=== PATIENT | male | born 1970 | race American Indian/Alaskan Native ===

== ENCOUNTER 2017-01-17 11:18 | Emergency (ER) | payer BC ==
[2017-01-17] MEDS ORDERED: TORADOL IM ONE (14:18)
--- NOTE | 2017-01-17 15:21 | Emergency Department Report ---
ED Back Pain/Injury HPI - General Chief Complaint: Back Pain/Injury Stated Complaint: LOWER BACK PAIN,LEFTLEG NUMBNESS Time Seen by Provider: 01/17/17 13:03 Source: patient Limitations: No Limitations - History of Present Illness Initial Comments: Patient is a 46-year-old male who presents due to left lower back pain that radiates to his left leg started this morning, patient is a history of having sharp left lower back pain after getting out of the shower. Patient denies any falls of back injuries. Patient states that he stands all day at work. Patient has any dysuria, hematuria or frequency. Patient denies any urinary or bowel incontinence. Patient denies any numbness but admits of tingling to the left ear. MD Complaint: back pain -: This morning Similar Symptoms Previously: No Place: home Radiation: left leg Severity: moderate, severe Severity scale (0 -10): 6 Quality: aching Consistency: intermittent Improves With: none Worsens With: walking Context: unknown Associated Symptoms: denies other symptoms - Related Data Previous Rx's Medication Instructions Recorded Last Taken Type Ibuprofen [Motrin 800 MG tab] 800 mg PO Q8HR PRN #30 tablet 01/17/17 Unknown Rx Methocarbamol [Robaxin TAB] 750 mg PO BID #15 tab 01/17/17 Unknown Rx Prednisone [predniSONE 10 mg 10 mg PO .TAPER #1 tab.ds.pk 01/17/17 Unknown Rx (6-Day Pack, 21 Tabs)] traMADol [Ultram 50 MG tab] 50 mg PO Q6HR PRN #15 tablet 01/17/17 Unknown Rx Allergies Allergy/AdvReac Type Severity Reaction Status Date / Time No Known Allergies Allergy Unverified 01/17/17 12:26 ED Review of Systems ROS: Stated complaint: LOWER BACK PAIN,LEFTLEG NUMBNESS Other details as noted in HPI Comment: All other systems reviewed and negative Constitutional: no symptoms reported. denies: chills, diaphoresis, fever, malaise, weakness Eyes: denies: eye pain, eye discharge, vision change ENT: denies: ear pain, throat pain, dental pain, hearing loss, epistaxis, congestion Respiratory: no symptoms reported Cardiovascular: denies: chest pain, palpitations, dyspnea on exertion, orthopnea , edema, syncope, paroxysmal nocturnal dyspnea Endocrine: no symptoms reported. denies: excessive sweating, flushing, intolerance to cold, intolerance to heat Gastrointestinal: denies: abdominal pain, nausea, vomiting Musculoskeletal: back pain, other (left leg pain). denies: joint swelling, arthralgia Skin: denies: rash, lesions Neurological: denies: headache, weakness, numbness Psychiatric: denies: anxiety ED Past Medical Hx - Past Medical History Previous Medical History?: No - Surgical History Past Surgical History?: No - Social History Smoking Status: Never Smoker Substance Use Type: Alcohol - Medications Home Medications: Home Medications Medication Instructions Recorded Confirmed Last Taken Type Ibuprofen [Motrin 800 MG tab] 800 mg PO Q8HR PRN #30 tablet 01/17/17 Unknown Rx Methocarbamol [Robaxin TAB] 750 mg PO BID #15 tab 01/17/17 Unknown Rx Prednisone [predniSONE 10 mg 10 mg PO .TAPER #1 tab.ds.pk 01/17/17 Unknown Rx (6-Day Pack, 21 Tabs)] traMADol [Ultram 50 MG tab] 50 mg PO Q6HR PRN #15 tablet 01/17/17 Unknown Rx ED Physical Exam - General Limitations: No Limitations General appearance: alert, in no apparent distress - Head Head exam: Present: atraumatic, normocephalic, normal inspection - Eye Eye exam: Present: normal appearance, PERRL, EOMI - ENT ENT exam: Present: normal exam, normal orophraynx, mucous membranes moist - Neck Neck exam: Present: normal inspection - Respiratory Respiratory exam: Present: normal lung sounds bilaterally. Absent: respiratory distress, wheezes, rales, rhonchi, stridor - Cardiovascular Cardiovascular Exam: Present: regular rate, normal rhythm, normal heart sounds - Expanded Lower Extremity Exam Left Hip exam: Present: full ROM. Absent: tenderness, swelling, abrasion, laceration , ecchymosis, deformity, crepidus, dislocation, erythema, external rotation Upper Leg exam: Present: normal inspection, full ROM. Absent: tenderness, swelling, abrasion, laceration, ecchymosis, deformity, crepidus, dislocation, erythema Knee exam: Present: normal inspection, full ROM. Absent: tenderness Lower Leg exam: Present: normal inspection, full ROM. Absent: tenderness Ankle exam: Present: normal inspection, full ROM. Absent: tenderness Foot/Toe exam: Present: normal inspection, full ROM. Absent: tenderness Neuro vascular tendon exam: Present: no vascular compromise. Absent: motor deficit, sensory deficit Gait: Positive: observed and normal - Neurological Exam Neurological exam: Present: alert, oriented X3, normal gait (patient had no neurological focal deficits, sensory function was intact in his upper and lower extremity. motor strength was 5/5 in the left and right lower an) - Psychiatric Psychiatric exam: Present: normal affect, normal mood - Skin Skin exam: Present: warm, dry, intact ED Course Vital Signs 01/17/17 01/17/17 12:26 14:28 Temperature 98.5 F Pulse Rate 61 Respiratory 18 Rate Blood Pressure 170/114 O2 Sat by Pulse 100 Oximetry ED Medical Decision Making - Medical Decision Making She was in no acute distress, patient had no neurological focal deficits, sensory function was intact in his left lower extremity, motor function was 5/5. X-ray of the lumbar spine showed no acute osseous abnormalities. Patient will be discharge with Robaxin for muscle spasms, ibuprofen for pain, tramadol for pain and prednisone tapering dose for inflammation. Patient was given information on follow-up with an medical transport specialist for any complications. Patient was told to return to the ER if he started having numbness, urinary or bowel incontinence. - Differential Diagnosis sciatica, lumbar strain, muscle spasm Critical care attestation.: If time is entered above; I have spent that time in minutes in the direct care of this critically ill patient, excluding procedure time. ED Disposition Clinical Impression: Muscle spasm Lumbar strain Qualifiers: Encounter type: initial encounter Qualified Code(s): S39.012A - Strain of muscle, fascia and tendon of lower back, initial encounter Disposition: DISCHARGED TO HOME OR SELFCARE Is pt being admited?: No Does the pt Need Aspirin: No Condition: Good Instructions: Muscle Strain (ED), Sciatica (ED) Additional Instructions: Take Robaxin 500 mg as needed every 8 hours, take ibuprofen 800 mg every 8 hours as needed for pain, take tramadol 1 tablet every 6 hours as needed for severe pain. Take prednisone tapering dose as prescribed. Follow-up with the provider orthopedic specialists for any complications. Return to the ER for any numbness, urinary or bowel incontinence. Prescriptions: Ibuprofen [Motrin 800 MG tab] 800 mg PO Q8HR PRN #30 tablet PRN Reason: Pain Methocarbamol [Robaxin TAB] 750 mg PO BID #15 tab Prednisone [predniSONE 10 mg (6-Day Pack, 21 Tabs)] 10 mg PO .TAPER #1 tab.ds.pk traMADol [Ultram 50 MG tab] 50 mg PO Q6HR PRN #15 tablet PRN Reason: Pain Referrals: PRIMARY CARE, [Primary Care Provider] - 3-5 Days TONY CARRENO MD [Staff Physician] - 3-5 Days Time of Disposition: 15:32
--- NOTE | 2017-01-17 15:28 | XRay Report ---
FINAL REPORT EXAM: XR SPINE LUMBOSACRAL 2-3V HISTORY: low back pain TECHNIQUE: AP, lateral and lumbosacral spot views of the lumbar spine. PRIORS: None. FINDINGS: There are five lumbar type vertebral bodies. Normal alignment. No compression fracture. The disc spaces are maintained. The paravertebral soft tissues are normal. Mild facet arthropathy of the lower lumbar spine is seen. IMPRESSION: Mild facet arthropathy of the lower lumbar spine.
[2017-01-17 15:52] VITALS: BP 173/100
== END 2017-01-17 15:52 | disposition home or self-care (01) ==
LOC: ED 11:18
DX: S39.012A Strain of muscle, fascia and tendon of lower back, initial encounter (principal); M62.830 Muscle spasm of back; X50.1XXA Overexertion from prolonged static or awkward postures, initial encounter; Y93.89 Activity, other specified; Y99.8 Other external cause status; Y92.89 Other specified places as the place of occurrence of the external cause
CPT/HCPCS: 72100; 96372; 99283; J1885

== ENCOUNTER 2017-02-19 12:15 | Emergency (ER) | payer BC ==
[2017-02-19 13:47] LABS: Basophils % (Auto) 0.7 % (0.0-1.8); Eosinophils % (Auto) 1.9 % (0.0-4.3); Hematocrit 47.6 % (35.5-45.6); Hemoglobin 15.4 gm/dl (11.8-15.2); Mean Corpuscular HGB Conc 32 % (32-34); Mean Corpuscular Hemoglobin 27 pg (28-32); Mean Corpuscular Volume 85 fl (84-94); Platelet Count 434 K/mm3 (140-440); Red Blood Count 5.61 M/mm3 (3.65-5.03); Red Cell Distribution Width 13.9 % (13.2-15.2); White Blood Count 8.9 K/mm3 (4.5-11.0)
[2017-02-19 13:49] LABS: Anion Gap 20 mmol/L; BUN/Creatinine Ratio 15.45; Blood Urea Nitrogen 17 mg/dL (9-20); Calcium 9.4 mg/dL (8.4-10.2); Carbon Dioxide 24 mmol/L (22-30); Chloride 100.5 mmol/L (98-107); Glucose 110 mg/dL (75-100); Potassium 4.1 mmol/L (3.6-5.0); Sodium 140 mmol/L (137-145)
[2017-02-19] MEDS ORDERED: CEPHULAC PO ONE (18:30)
--- NOTE | 2017-02-19 18:41 | Emergency Department Report ---
HPI - General Chief Complaint: Abdominal Pain Time Seen by Provider: 02/19/17 18:19 - HPI HPI: Room 17 The patient is a 46-year-old male presenting with a chief complaint of hypertension and constipation. The patient states several weeks ago is instructed by his primary physician come to the ED because blood pressure was elevated (patient does not remember the values). The patient states one reason he came to the ED today was to have his blood pressure evaluated and managed. Patient has a history of a recent back injury has been placed on Ultram and Mobic. The patient states he believes this is less to constipation. Patient states she has not had a bowel movement for the past 6 days. Patient denies nausea or vomiting. Patient denies any history of fever. Patient complains of fullness in the left abdomen Location: [see above] Duration: [see above] Quality: Pressure Severity: Moderate Modifying factors: Magnesium citrate did not help Context: [see above] Mode of transportation: Unknown ED Past Medical Hx - Past Medical History Hx Hypertension: Yes (recent diagnosis) Hx Asthma: Yes Additional medical history: BACK INJURY - Surgical History Past Surgical History?: No - Family History Family history: no significant - Social History Smoking Status: Former Smoker Substance Use Type: Alcohol (occasional) - Medications Home Medications: Home Medications Medication Instructions Recorded Confirmed Last Taken Type traMADol [Ultram 50 MG tab] 50 mg PO Q6HR PRN #15 tablet 01/17/17 02/19/1702/18 18:00 Rx Meloxicam [Mobic] 7.5 mg PO BID 02/19/17 02/19/17 02/18/17 08:00 History Docusate Sodium [Colace] 100 mg PO BID #60 capsule 02/20/17 Unknown Rx Lactulose [Cephulac] 20 gm PO QDAY #90 ml 02/20/17 Unknown Rx ED Review of Systems ROS: Stated complaint: BOWEL BLOCKAGE/BP Other details as noted in HPI Comment: All other systems reviewed and negative Constitutional: denies: chills, fever Eyes: denies: eye pain, eye discharge, vision change ENT: denies: ear pain, throat pain Respiratory: denies: cough, shortness of breath, wheezing Cardiovascular: denies: chest pain, palpitations Endocrine: no symptoms reported Gastrointestinal: abdominal pain, constipation. denies: nausea, vomiting Genitourinary: denies: urgency, dysuria Musculoskeletal: myalgia Skin: denies: rash, lesions Neurological: denies: headache, weakness, paresthesias Psychiatric: denies: anxiety, depression Hematological/Lymphatic: denies: easy bleeding, easy bruising Physical Exam - Physical Exam Vital Signs: Vital Signs 02/19/17 13:00 Temperature 98.5 F Pulse Rate 54 L Respiratory 19 Rate Blood Pressure 168/118 O2 Sat by Pulse 99 Oximetry Physical Exam: GENERAL: The patient is well-developed well-nourished male lying on stretcher not appearing to be in acute distress. [] HEENT: Normocephalic. Atraumatic. Extraocular motions are intact. Patient has moist mucous membranes. NECK: Supple. Trachea midline CHEST/LUNGS: Clear to auscultation. There is no respiratory distress noted. HEART/CARDIOVASCULAR: Regular. There is no tachycardia. There is no gallop rub or murmur. ABDOMEN: Abdomen is soft, mild tenderness to palpation in the left lower quadrant. Mild discomfort to palpation in the left upper quadrant. Patient has normal bowel sounds. There is no abdominal distention. SKIN: There is no rash. There is no edema. There is no diaphoresis.and gait. MUSCULOSKELETAL: There is no evidence of acute injury. ED Course Vital Signs 02/19/17 13:00 Temperature 98.5 F Pulse Rate 54 L Respiratory 19 Rate Blood Pressure 168/118 O2 Sat by Pulse 99 Oximetry - Reevaluation(s) Reevaluation #1: 02/20/17 01:01 Patient has had a large bowel movement and feels improved ED Medical Decision Making - Lab Data Result diagrams: 02/19/17 13:20 02/19/17 13:20 Laboratory Tests 02/19/17 02/19/17 13:20 13:20 WBC 8.9 RBC 5.61 H Hgb 15.4 H Hct 47.6 H MCV 85 MCH 27 L MCHC 32 RDW 13.9 Plt Count 434 Lymph % (Auto) 19.8 [place] % (Auto) 7.6 H Eos % (Auto) 1.9 Baso % (Auto) 0.7 Lymph # 1.8 [place] # 0.7 Eos # 0.2 Baso # 0.1 Seg Neutrophils % 70.0 Seg Neutrophils # 6.2 Sodium 140 Potassium 4.1 Chloride 100.5 Carbon Dioxide 24 Anion Gap 20 BUN 17 Creatinine 1.1 Estimated GFR > 60 BUN/Creatinine Ratio 15.45 Glucose 110 H Calcium 9.4 - Differential Diagnosis opiate-induced constipation, diverticulitis, colonic mass, hypertension Critical care attestation.: If time is entered above; I have spent that time in minutes in the direct care of this critically ill patient, excluding procedure time. ED Disposition Clinical Impression: Abdominal pain, Constipation Disposition: DISCHARGED TO HOME OR SELFCARE Is pt being admited?: No Does the pt Need Aspirin: No Condition: Stable Instructions: Constipation (ED), High Fiber Diet (ED) Additional Instructions: Return to the emergency department immediately should you develop worsening symptoms, fever, inability to tolerate food or liquid or any other concerns. Prescriptions: Docusate Sodium [Colace] 100 mg PO BID #60 capsule Lactulose [Cephulac] 20 gm PO QDAY #90 ml Referrals: PRIMARY CARE, [Primary Care Provider] - 3-5 Days NATHAN HO MD [Staff Physician] - 3-5 Days (Dr. Ho is a police matron. Please follow up with him for further evaluation) Time of Disposition: 01:04
[2017-02-19] MEDS ORDERED: CATAPRES PO ONE (19:14)
--- NOTE | 2017-02-19 21:08 | Cat Scan Report ---
FINAL REPORT PROCEDURE: CT ABDOMEN PELVIS W CON TECHNIQUE: Computerized axial tomography of the abdomen and pelvis was performed after the IV injection of iodinated nonionic contrast. Oral contrast was not given HISTORY: Diffuse abdominal pain, constipation COMPARISON: No prior studies are available for comparison. FINDINGS: Visualized lower thorax: There is a tiny 2 millimeter nodular like density in the lateral left lung base image 16 of series 3. This is too small to characterize therefore remains nonspecific. It could be a prominent vessel but again is nonspecific. Liver: A small faint focal hypodensity in the anterior liver near the falciform ligament is too small to characterize and therefore remains nonspecific. However given its typical location this could be an incidental focal area of fatty infiltration. The liver appears unremarkable otherwise. Spleen: Normal size and attenuation. Gallbladder and biliary system: Normal. Pancreas: Normal. Adrenals: Normal. Kidneys: Both kidneys show a slightly lobulated contour throughout their entire surface. This is nonspecific but is bilaterally symmetric and could be an incidental congenital or developmental variant. A small sub centimeter hypodensity in the right kidney is too small to characterize and therefore remains nonspecific but could be a small cyst. GI tract: There is severe localized dilation of the rectum filled with large amount of stool. This could indicate fecal impaction or constipation. The remainder the colon is not dilated although it contains a moderate amount of stool. The small bowel is not dilated. Hyperdense material throughout the colon could be due to contrast from a prior procedure or hyperdense ingested material. Oral contrast was not given for this exam. The appendix is seen and appears normal. However there is a 1.9 centimeter fluid density well-defined cystic structure adjacent to the origin of the appendix and abutting the outside of the cecum. This could be an incidental GI duplication cyst. A mucocele is possible. However it is nonspecific and cystic lesion of other etiology is not exclude. This is likely incidental. There is a moderate left inguinal hernia containing fat only. Lymph nodes and mesentery: Normal. Vasculature: Normal. Bladder: Normal. Reproductive organs: Normal. Peritoneum: No free fluid. Musculoskeletal structures: Mild bony degenerative change. Other: None. IMPRESSION: 1. There is severe localized dilation of the rectum which is packed full of stool. This could indicate fecal impaction or some element of constipation or distal colonic dysfunction. The remainder the colon and the small bowel are not dilated. 2. 1.9 centimeter cystic structure adjacent to the origin of the appendix. The significance of this is uncertain. This could be an incidental GI duplication cyst. A mucocele is possible. It is nonspecific and cystic lesion of other etiology is not excluded. This is likely incidental. 3. There is a moderate left inguinal hernia containing fat only. 4. Possible cyst in right kidney but the finding is too small to characterize. 5. Bilaterally symmetric lobulation of both kidneys is nonspecific but could be congenital or developmental.
[2017-02-20 02:49] VITALS: BP 154/88
== END 2017-02-20 02:20 | disposition home or self-care (01) ==
LOC: ED 12:15
DX: K59.00 Constipation, unspecified (principal); I10 Essential (primary) hypertension; J45.909 Unspecified asthma, uncomplicated
CPT/HCPCS: 36415; 74177; 80048; 85025; 93005; 93010; 99284; Q9967

== ENCOUNTER 2021-06-07 13:20 | Emergency (ER) | payer BC ==
--- NOTE | 2021-06-07 19:06 | Event Note ---
ED Screening Note Date of service: 06/07/21 Time: 19:03 ED Screening Note: 50 y/o male patient with history of sciatica and lumbar disc herniation presents to the emergency department via EMS with complaints of bilateral lower extremity weakness, right greater than left, starting this morning. Patient states yesterday he was experiencing right lower back pain, for which he took tramadol and a muscle relaxer. States his pain has significantly improved today. Pain is consistent with prior exacerbations of chronic back pain. However, he does not typically experience associated weakness in his lower extremities to the point where he is unable to walk. States his right leg in particular feels "weak, like it's going to give out." No bladder/bowel dysfunction. No recent fall, trauma, or injury. Hypertensive in triage. General: Awake, appropriately interactive, no acute distress. Neck: Supple. Full range of motion intact. Cardiovascular: Normal peripheral perfusion. Pulmonary: No respiratory distress. Patient is speaking normally without use of accessory muscles. Skin: No apparent rashes or lesions. Neurological: Strength is 5/5 in all extremities however patient states he is not able to bear weight. Sensation intact throughout. Musculoskeletal: Moves all four extremities spontaneously with normal range of motion. Psych: Cooperative. Appropriate mood and affect. CT head and labs ordered. Decision to obtain further imaging (i.e. MRI) deferred to additional ED providers following full history and comprehensive physical examination. Case discussed with Dr. Rodriguez, attending emergency physician, who personally evaluated the patient and agrees with initial diagnostic work-up. I have greeted and performed a focused rapid initial assessment of this patient. A comprehensive ED assessment and evaluation of the patient, analysis of all test results, and completion of the medical decision-making process will be conducted by additional ED providers. This initial assessment/diagnostic orders/clinical plan/treatment(s) is/are subject to change based on patients health status, clinical progression and re-assessment. Further treatment and workup at subsequent clinical provider's discretion. Patient/guardian urged not to elope from the ED as their condition may be serious if not clinically assessed and managed.
[2021-06-07 19:31] LABS: Basophils # (Auto) 0.1 K/mm3 (0.0-0.1); Basophils % (Auto) 0.7 % (0.0-1.8); Eosinophils # (Auto) 0.2 K/mm3 (0.0-0.4); Eosinophils % (Auto) 1.3 % (0.0-4.3); Hematocrit 46.2 % (35.5-45.6); Hemoglobin 15.5 gm/dl (11.8-15.2); Lymphocytes # (Auto) 2.7 K/mm3 (1.2-5.4); Mean Corpuscular HGB Conc 34 % (32-34); Mean Corpuscular Volume 86 fl (84-94); Monocytes # (Auto) 0.9 K/mm3 (0.0-0.8); Monocytes % (Auto) 6.8 % (0.0-7.3); Platelet Count 263 K/mm3 (140-440); Red Blood Count 5.35 M/mm3 (3.65-5.03); Red Cell Distribution Width 14.5 % (13.2-15.2)
[2021-06-07 19:42] LABS: INR 0.92 (0.87-1.13)
[2021-06-07 19:43] LABS: Partial Thromboplastin Time 38.8 Sec. (24.2-36.6)
[2021-06-07 19:49] LABS: Alanine Aminotransferase 26 units/L (7-56); BUN/Creatinine Ratio 11; Blood Urea Nitrogen 12 mg/dL (9-20); Calcium 9.6 mg/dL (8.4-10.2); Hemolysis Index 7
--- NOTE | 2021-06-07 19:52 | Cat Scan Report ---
NONENHANCED CT SCAN OF THE HEAD: INDICATION / CLINICAL INFORMATION: 50 years Male; bilateral lower extremity weakness, R>L. TECHNIQUE: Routine CT head without contrast. All CT scans at this location are performed using CT dos e reduction for ALARA by means of automated exposure control. COMPARISON: None. FINDINGS: BRAIN / INTRACRANIAL CONTENTS: No acute hemorrhage, mass effect, midline shift, hydrocephalus, or acu te, large territorial infarct. No volume loss in the cerebellar vermis. Normal brain volume and ventr icular/sulcal size for age. No significant white matter abnormality. CRANIOCERVICAL JUNCTION: No significant abnormality. ORBITS: No significant abnormality of visualized orbits. SINUSES / MASTOIDS: Fluid accumulation in the sphenoid sinus; mastoid air cells are normal ADDITIONAL FINDINGS: Sebaceous cyst in the left parietal scalp IMPRESSION: No acute focal parenchymal lesion Signer Name: Sylvia Hayden MD Signed: 06/07/2021 7:47 PM Workstation Name: [id number]
[2021-06-08] MEDS ORDERED: hydrALAZINE 20 MG/1 ML INJ IV ONE (01:31)
--- NOTE | 2021-06-08 01:36 | Emergency Department Report ---
- General Chief complaint: Back Pain/Injury Stated complaint: RT LEG PAIN/BACK PAIN PUI?: No Time Seen by Provider: 06/08/21 01:30 Source: patient Mode of arrival: Stretcher Limitations: No Limitations - History of Present Illness Initial comments: Patient is a 50-year-old male that presents emergency room with complaints of lower back pain, lower extremity weakness, inability to walk. Patient states his symptoms started at 11 AM. Patient is a history of sciatica 7 and a sciatica flareup. Patient states his back pain is a 3 or 4 out of 10. Patient states that he is not able to move his right lower extremity but he can move his left lower extremity but it feels weak. Patient states that his symptoms are worsening. Patient states that he can feel everything he does not have any numbness. Patient denies saddle numbness. Patient denies loss control bowel or bladder. Patient denies recent travel. Patient denies recent international travel. Patient denies exposure to the novel coronavirus. Patient denies sick contacts. Patient denies fever and chills. Patient denies cough. Patient denies diarrhea. Patient denies coming in contact with anybody with symptoms of the novel coronavirus. MD Complaint: focal weakness, difficulty walking -: Sudden Severity scale (0 -10): 3 - Related Data Home Medications Medication Instructions Recorded Confirmed Last Taken Meloxicam [Mobic] 7.5 mg PO BID 02/19/17 02/19/17 02/18/17 08:00 Previous Rx's Medication Instructions Recorded Last Taken Type traMADoL [Ultram 50 MG tab] 50 mg PO Q6HR PRN #15 tablet 01/17/17 02/18/17 18:00 Rx Docusate Sodium [Colace] 100 mg PO BID #60 capsule 02/20/17 Unknown Rx Lactulose [Cephulac] 20 gm PO QDAY #90 ml 02/20/17 Unknown Rx Allergies Allergy/AdvReac Type Severity Reaction Status Date / Time No Known Allergies Allergy Verified 02/19/17 13:05 ED Review of Systems ROS: Stated complaint: RT LEG PAIN/BACK PAIN Other details as noted in HPI Constitutional: denies: chills, fever Eyes: denies: eye pain, eye discharge, vision change ENT: denies: ear pain, throat pain Respiratory: denies: cough, shortness of breath, wheezing Cardiovascular: denies: chest pain, palpitations Endocrine: no symptoms reported Gastrointestinal: denies: abdominal pain, nausea, diarrhea Genitourinary: denies: urgency, dysuria Musculoskeletal: as per HPI, back pain. denies: joint swelling, arthralgia Skin: denies: rash, lesions Neurological: denies: headache, weakness, paresthesias Psychiatric: denies: anxiety, depression Hematological/Lymphatic: denies: easy bleeding, easy bruising ED Past Medical Hx - Past Medical History Previous Medical History?: Yes Hx Hypertension: Yes (recent diagnosis) Hx Asthma: Yes Additional medical history: BACK INJURY - Surgical History Past Surgical History?: No - Family History Family history: no significant - Social History Smoking Status: Never Smoker Substance Use Type: Alcohol - Medications Home Medications: Home Medications Medication Instructions Recorded Confirmed Last Taken Type traMADoL [Ultram 50 MG tab] 50 mg PO Q6HR PRN #15 tablet 01/17/17 02/19/17 02/18/17 18:00 Rx Meloxicam [Mobic] 7.5 mg PO BID 02/19/17 02/19/17 02/18/17 08:00 History Docusate Sodium [Colace] 100 mg PO BID #60 capsule 02/20/17 Unknown Rx Lactulose [Cephulac] 20 gm PO QDAY #90 ml 02/20/17 Unknown Rx ED Physical Exam - General Limitations: No Limitations General appearance: alert, in no apparent distress - Head Head exam: Present: atraumatic, normocephalic - Eye Eye exam: Present: normal appearance - ENT ENT exam: Present: mucous membranes moist - Neck Neck exam: Present: normal inspection - Respiratory Respiratory exam: Present: normal lung sounds bilaterally. Absent: respiratory distress, wheezes, rales - Cardiovascular Cardiovascular Exam: Present: regular rate, normal rhythm. Absent: systolic murmur, diastolic murmur, rubs, gallop - GI/Abdominal GI/Abdominal exam: Present: soft, normal bowel sounds. Absent: distended, tenderness, guarding - Rectal Rectal exam: Present: deferred - Extremities Exam Extremities exam: Present: normal inspection - Back Exam Back exam: Present: normal inspection - Neurological Exam Neurological exam: Present: alert, oriented X3 - Psychiatric Psychiatric exam: Present: normal affect, normal mood - Skin Skin exam: Present: warm, dry, intact, normal color. Absent: rash - Assessment Assessment Interval: Baseline - Level of Consciousness 1a. Level of Consciousness: alert/keenly responsive - LOC Questions 1b. LOC Questions: answers both correctly - LOC Command 1c. LOC Commands: performs tasks correctly - Best Gaze 2. Best Gaze: normal - Visual 3. Visual: no visual loss - Facial Palsy 4. Facial Palsy: normal symmetrical movement - Motor Arm 5a. Motor Arm Left: no drift 5b. Motor Arm Right: no drift - Motor Leg 6a. Motor Leg Left: some gravity effort 6b. Motor Leg Right: no movement - Limb Ataxia 7. Limb Ataxia: absent - Sensory 8. Sensory: normal - Best Language 9. Best Language: no aphasia - Dysarthria 10. Dysarthria: normal - Extinction and Inattention 11. Extinction/Inattention: no abnormality - Scoring Total Score: 6 Stroke Severity: Moderate Stroke ED Course Vital Signs 06/07/21 06/07/21 06/08/21 13:37 19:00 00:50 Temperature 98.0 F 97.8 F Pulse Rate 86 71 83 Respiratory 16 23 18 Rate Blood Pressure 196/123 Blood Pressure 182/111 136/75 [Left] O2 Sat by Pulse 95 95 98 Oximetry 06/08/21 06/08/21 06/08/21 00:55 02:10 03:01 Temperature 97.8 F Pulse Rate 81 Respiratory 18 18 Rate Blood Pressure 190/115 Blood Pressure 194/134 [Left] O2 Sat by Pulse 98 Oximetry - Reevaluation(s) Reevaluation #1: Patient blood pressure elevated patient was given hydralazine 20 mg. Patient is on a financial services professional. Patient will have a lumbar CT done. I will consult neurosurgery. 06/08/21 01:36 Reevaluation #2: I discussed all results and clinical findings with patient. I discussed plan of care with patient. Patient agrees with plan of care. Patient is stable for transfer. Patient is being transferred to [facility] to ER. 06/08/21 04:08 - Consultations Consultation #1: Neurosurgery paged. 06/08/21 01:36 I discussed the case with neurosurgery and neurosurgery states that the patient needs an emergent MRI and should be transferred after the CT lumbar is done to a facility that can do an emergent MRI and has neurosurgery support. 06/08/21 02:02 Consultation #2: I discussed case with [facility] attending, Dr. Christie. Dr. Christie has accepted the patient be transferred ER to ER. 06/08/21 04:08 ED Medical Decision Making - Lab Data Result diagrams: 06/07/21 19:09 06/07/21 19:09 - Radiology Data Radiology results: report reviewed NONENHANCED CT SCAN OF THE HEAD: INDICATION / CLINICAL INFORMATION: 50 years Male; bilateral lower extremity weakness, R>L. TECHNIQUE: Routine CT head without contrast. All CT scans at this location are performed using CT dose reduction for ALARA by means of automated exposure control. COMPARISON: None. FINDINGS: BRAIN / INTRACRANIAL CONTENTS: No acute hemorrhage, mass effect, midline shift, hydrocephalus, or acute, large territorial infarct. No volume loss in the cerebellar vermis. Normal brain volume and ventricular/sulcal size for age. No significant white matter abnormality. CRANIOCERVICAL JUNCTION: No significant abnormality. ORBITS: No significant abnormality of visualized orbits. SINUSES / MASTOIDS: Fluid accumulation in the sphenoid sinus; mastoid air cells are normal ADDITIONAL FINDINGS: Sebaceous cyst in the left parietal scalp IMPRESSION: no acute focal parenchymal lesion CT LUMBAR SPINE WITHOUT CONTRAST INDICATION / CLINICAL INFORMATION: unable to walk. lower ext weakness. back pain. TECHNIQUE: Axial CT images were obtained through the lumbar spine. Sagittal and coronal reformatted images were produced. All CT scans at this location are performed using CT dose reduction for ALARA by means of automated exposure control. COMPARISON: None available. FINDINGS: VERTEBRAE: There are a few small lytic lesions noted. There is a lytic lesion noted in the T11 vertebral body and in the L2 vertebral body ALIGNMENT: No significant abnormality. DISC SPACES: No significant abnormality. FACET JOINTS: No significant abnormality. SPINAL CANAL: No significant abnormality. SACRUM:No significant abnormality of the visualized sacrum. PARASPINAL SOFT TISSUES: No significant abnormality. ADDITIONAL FINDINGS: In addition there is lytic appearing area in the right iliac bone, series 2 image 346 IMPRESSION: 1. Small lytic appearing lesions are noted. These are suspicious for metastases but not definitive. Nuclear medicine bone scan and lumbar MRI recommended for further evaluation. - Medical Decision Making Patient is a 50-year-old male presents emergency room complaints of low back pain and inability to walk and lower extremity weakness. On neuro exam patient has notable weakness on his lower extremities. Right greater than left. Patient had a head CT for the weakness that was negative for acute finding. Patient had labs done essentially unremarkable. Patient then had a CT of the lumbar spine and it was positive for lytic lesion but did not explain the leg weakness. I discussed the case with neurosurgery and neurosurgery recommends transfer to a facility as neuro surgery support and MRI. Patient is being transferred to [facility]. Patient agrees with transfer. Patient is stable for transfer. Critical care time documented due to the multiple reassessments, prolonged time at the bedside, interpretation of diagnostics and labs and discussion with [facility]. - Differential Diagnosis Nonambulatory, cauda equina's, lower back pain, weakness Critical Care Time: Yes Critical care time in (mins) excluding proc time.: 35 Critical care attestation.: If time is entered above; I have spent that time in minutes in the direct care of this critically ill patient, excluding procedure time. Critical Care Time: 35 minutes ED Disposition Clinical Impression: Unable to walk, Lumbar back pain, Bilateral leg weakness, Lesion of lumbar spine Disposition: [id number] ANOTHER TYPE HLTHCARE Is pt being admited?: No Does the pt Need Aspirin: No Condition: Critical Time of Disposition: 04:25
--- NOTE | 2021-06-08 02:41 | Cat Scan Report ---
CT LUMBAR SPINE WITHOUT CONTRAST INDICATION / CLINICAL INFORMATION: unable to walk. lower ext weakness. back pain. TECHNIQUE: Axial CT images were obtained through the lumbar spine. Sagittal and coronal reformatted i mages were produced. All CT scans at this location are performed using CT dose reduction for ALARA by means of automated exposure control. COMPARISON: None available. FINDINGS: VERTEBRAE: There are a few small lytic lesions noted. There is a lytic lesion noted in the T11 verteb ral body and in the L2 vertebral body ALIGNMENT: No significant abnormality. DISC SPACES: No significant abnormality. FACET JOINTS: No significant abnormality. SPINAL CANAL: No significant abnormality. SACRUM:No significant abnormality of the visualized sacrum. PARASPINAL SOFT TISSUES: No significant abnormality. ADDITIONAL FINDINGS: In addition there is lytic appearing area in the right iliac bone, series 2 imag e 346 IMPRESSION: 1. Small lytic appearing lesions are noted. These are suspicious for metastases but not definitive. [facility] and lumbar MRI recommended for further evaluation. Signer Name: Justo Ochoa MD Signed: 06/08/2021 2:37 AM Workstation Name: [id number]
[2021-06-08] MEDS ORDERED: HYDROmorphone 1 MG/1 ML INJ IV ONE (02:55)
[2021-06-08 07:51] VITALS: BP 142/85
== END 2021-06-08 08:47 | disposition other institution (70) ==
LOC: ED 13:20
DX: M89.9 Disorder of bone, unspecified (principal); M54.5 Low back pain; R29.898 Other symptoms and signs involving the musculoskeletal system; R26.2 Difficulty in walking, not elsewhere classified; I10 Essential (primary) hypertension; J45.909 Unspecified asthma, uncomplicated; Z79.899 Other long term (current) drug therapy
CPT/HCPCS: 36415; 70450; 72131; 80053; 83735; 85025; 85610; 85730; 96374; 96375; 99285; J0360; J1170